=== PATIENT | male | born 1980 | race African-American/Black ===

== ENCOUNTER 2022-03-28 06:03 | Emergency (ER) | payer OTHER ==
[~2022-03-28] VITALS: Ht 180.3 cm; Wt 95.0 kg
[2022-03-28 06:17] VITALS: BP 175/98
[2022-03-28] MEDS ORDERED: TOBRAMYCIN 0.3% OPHTH DROPS 5ML OP STA (06:41)
[2022-03-28] MEDS ORDERED: TOBR5DRO7 EACHEYE (06:48)
[2022-03-28] MEDS ORDERED: TOBRAMYCIN 0.3% OPHTH DROPS 5ML OP NR (07:00)
== END 2022-03-28 07:00 | disposition home or self-care (01) ==
LOC: ER 06:03
DX: H10.33 Unspecified acute conjunctivitis, bilateral (principal); J06.9 Acute upper respiratory infection, unspecified
CPT/HCPCS: 99283